=== PATIENT | male | born 1995 | race Two or more races ===

== ENCOUNTER → 2025-01-31 | Emergency (ER) | payer OTHER ==
[~2025-01-31] VITALS: Ht 167.6 cm; Wt 72.6 kg
[2025-01-31 23:30] VITALS: BP 112/73; O2SAT 97
== END | disposition left against medical advice (07) ==
LOC: ER 22:51
DX: Z53.21 Procedure and treatment not carried out due to patient leaving prior to being seen by health care provider (principal)

== ENCOUNTER 2025-02-20 08:45 | Outpatient (CLI) | payer OTHER | END 2025-02-20 09:00 | disposition home or self-care (01) | LOC: RAD 08:45 | PROVIDERS: ATTEND Orthopaedic Surgery | DX: S82.61XA Displaced fracture of lateral malleolus of right fibula, initial encounter for closed fracture (principal) ==